=== PATIENT | female | born 1950 | race Caucasian/White ===

== ENCOUNTER → 2019-08-23 | Outpatient (CLI) | payer OTHER ==
[~2019-08-23] MED LIST: ALPRAZOLAM 0.0.25 M1; ALPRAZOLAM2 MG PO; AMBIEN 5 MG TABL5 M1 PO; AMBIEN5 MG PO; CHLORPROMAZINE100 MG PO; CLONAZEPAM0.125 MG; COREG CR20 MG; COREG25 MG PO; GEODON20 MG; GEODON60 MG PO; LACTINEX CHEWA1 EACH PO; LAMICTAL 25 MG25 M1; LEVAQUIN 500 M500 M2 PO; LEXAPRO20 MG; LIDODERM 5%1 PATC1 TRANSDERM; LITHATE5 MG; MACROBID 100 M100 M1 PO; NORCO 5-325 TA1 EACH PO; OMEPRAZOLE 20 M20 M1 PO; OXYCODONE HCL 55 MG PO; OXYCODONE HCL E10 MG PO; PERCOCET 5-3251 EACH PO; POTASSIUM20 PO; PROZAC 20 MG20 MG PO; QUETIAPINE FUM400 MG PO; QUETIAPINE FUMA25 MG; SEROQUEL400 MG PO; TRAZODONE HCL100 MG PO; TYLENOL325 MG PO; XANAX 0.5 MG0.5 MG PO; XANAX2 MG PO; ZOLOFT50 M1 PO
== END ==
LOC: SJCVCIMAG 13:31 → SJCVC 13:31
DX: R07.9 Chest pain, unspecified (principal); R06.09 Other forms of dyspnea; K21.9 Gastro-esophageal reflux disease without esophagitis; E78.5 Hyperlipidemia, unspecified; I10 Essential (primary) hypertension; M19.90 Unspecified osteoarthritis, unspecified site; F17.210 Nicotine dependence, cigarettes, uncomplicated

== ENCOUNTER → 2019-08-27 | Outpatient (CLI) | payer OTHER ==
[~2019-08-27] VITALS: Ht 167.6 cm; Wt 69.4 kg
[2019-08-27 09:57] VITALS: BP 125/68
[2019-08-27 10:03] LABS: HEMATOCRIT 39.2 % (37.0-47.0); HEMOGLOBIN 13.2 gm/dL (12.0-15.0); MCH 33.1 pg (26.0-34.0); MCHC 33.7 g/dL (28.0-37.0); MCV 98.1 fL (80.0-100.0); RDW 13.4 % (10.5-14.5)
[2019-08-27 10:10] LABS: CALCIUM 8.9 mg/dL (8.5-10.1); CREATININE 0.9 mg/dL (0.6-1.0); POTASSIUM 3.9 mmol/L (3.5-5.1)
--- NOTE | 2019-08-28 10:01 | CATHLAB ---
[facility] [place] [address] INVASIVE PROCEDURE REPORT Name: NNAMDI BORGES Room #: REG SIVAN WolfRene#: [id number] Admission: 08/27/19 Attend Phys: Dillon Conner Discharge: Date of : 54 Report #: [id number] THIS REPORT FOR: cc: Curtis An MD, Michael D. MD Lammoglia, Francisco J. MD ~ APPROVED REPORT Study performed: 08/27/2019 10:35:33 Patient Details Patient Status: Out-Patient Room #: The patient is a 68 year-old female Event Personnel Dillon Conner Corporate Security Manager, Lela Martinez RN RN, Chloe Mann Paschal, Ja'net RTR Monitor Procedures Performed Art Access - R femoral artery* Left Heart Cath w/or w/o Coronaries [id number] [facility] [id number] Initial Mod Sed Same Phys/QHP 5y [id number] Hemostasis with Manual pressure, supervision of conscious sedation Indication Positive stress test, Chest pain Procedure Narrative The Right Groin^ was infiltrated with 1% Lidocaine subcutaneous anesthesia. A PINNACLE 4FR Sheath #[id number] sheath was inserted into the RFA^. Coronary angiography was performed using coronary diagnostic catheters. The right coronary system was accessed and visualized with a JR4 catheter. The left coronary system was accessed and visualized with a JL4 catheter. The left ventricle was accessed and visualized with a ANGLED PIGTAIL catheter. Hemostasis was obtained with manual pressure following sheath removal without any complications. The patient tolerated the procedure well and there were no complications associated with the procedure. There was no hematoma. Intraoperative Conscious Sedation Sedation start time: 11:18 Case end Time: 11:45 [facility] [place] [address] INVASIVE PROCEDURE REPORT Name: NNAMDI BORGES Room #: REG [facility]#: [id number] Admission: 08/27/19 Attend Phys: Dillon Maxwell Discharge: Date of : 54 Report #: [id number] Versed 4 mg Fluoro Time: 1.46 minutes Dose: DAP 1908.80 cGycm2 266 mGy Contrast Type and Amount: Omnipaque 45 ml Coronary Angiography The patient's coronary anatomy is right dominant. Diagnostic Cath Left Main Normal origin and moderate to large caliber bifurcates left anterior descending left circumflex. It is free of high-grade lesion although there is a proximal plaque that's noted which is minimal at less than 30%. It is quite short in length the vessel itself. LAD Moderate caliber type II vessel which courses in the anterior interventricular sulcus giving rise to septal and diagonal branches as it reaches the apex and terminates as a bifurcating small caliber vessel at the apex. In its course it has luminal irregularities. In its mid course there is a hairpin bend which does not appear to be flow limiting. Diagonal 1 Small-caliber vessel without significant obstructive lesions noted with only minimal irregularities in its lumen Circumflex Moderate caliber nondominant vessel courses in the AV groove giving rise to early marginal branch. This marginal branch is quite large as it courses along the lateral aspect of her intermittent bifurcating vessel with out high-grade lesions noted. The circumflex proper then continues on as a small caliber vessel in the posterior aspect of the heart OM1 Moderate to large caliber vessel coursing on the lateral aspect the heart with out high-grade lesions noted Right Coronary Moderate caliber vessel normal origin courses along the AV groove giving rise to are a in RV marginal branches. It then continues on reaching the crux of the heart where it gives rise to posterior descending artery and terminates is small posterior wall branch. Luminal irregularities are noted but no high-grade lesions are present. R PDA Small-caliber vessel without significant high-grade lesions present Left Ventriculography Left Ventriculography was not performed. Hemodynamics The aortic pressure is 135/72 mmHg with a mean of 95 mmHg. The left [facility] [address] [place] [address] INVASIVE PROCEDURE REPORT Name: NNAMDI BORGES Room #: REG Maryann.#: [id number] Admission: 08/27/19 Attend Phys: Dillon Maxwell Discharge: Date of : 54 Report #: [id number] ventricular pressure is 142/6 mmHg with a mean of mmHg. The left ventricular end diastolic pressure is 18 mmHg. Conclusion 1. Minimal coronary artery disease with mild luminal irregularities 2. Normal hemodynamics Recommendations Cardiac Risk Reduction Program Medical Therapy <ELECTRONICALLY SIGNED> By: Dillon Conner MD 08/28/19958 8 8 Dillon Conner MD /INF
== END | disposition home or self-care (01) ==
LOC: CATH 09:22
PROVIDERS: Internal Medicine
DX: R94.39 Abnormal result of other cardiovascular function study (principal); R07.9 Chest pain, unspecified; I25.10 Atherosclerotic heart disease of native coronary artery without angina pectoris; F31.9 Bipolar disorder, unspecified; M19.90 Unspecified osteoarthritis, unspecified site; F20.0 Paranoid schizophrenia; J44.9 Chronic obstructive pulmonary disease, unspecified; K21.9 Gastro-esophageal reflux disease without esophagitis; Z98.890 Other specified postprocedural states; Z79.899 Other long term (current) drug therapy; Z98.51 Tubal ligation status; Z90.710 Acquired absence of both cervix and uterus; Z90.49 Acquired absence of other specified parts of digestive tract; Z88.8 Allergy status to other drugs, medicaments and biological substances; Z87.891 Personal history of nicotine dependence